=== PATIENT | female | born 2000 | race African-American/Black ===

== ENCOUNTER 2023-02-01 00:24 | Emergency (ER) | payer MEDICAID ==
[2023-02-01] MEDS ORDERED: IBUP-2028 MT (01:07)
[2023-02-01] MEDS ORDERED: ONDA4TAB50 MT (01:07)
[2023-02-01] MEDS ORDERED: PENI500T MT (01:07)
[2023-02-01] MEDS ORDERED: HYDROCODONE/ACETAMINOPHEN 5/325MG TABLET PO ONE (01:45)
== END 2023-02-01 01:39 | disposition home or self-care (01) ==
LOC: ER 00:24
DX: D57.1 Sickle-cell disease without crisis (principal); K13.79 Other lesions of oral mucosa; J02.9 Acute pharyngitis, unspecified
CPT/HCPCS: 81025; 99283

== ENCOUNTER 2023-09-04 09:39 | Emergency (ER) | payer MEDICAID ==
[~2023-09-04] VITALS: Ht 167.6 cm; Wt 59.0 kg
[~2023-09-04 09:39] MED LIST: IBUP-2028 MT; ONDA4TAB50 MT; PENI500T MT
[2023-09-04 09:56] VITALS: O2SAT 99
[2023-09-04] MEDS ORDERED: MORPHINE SULFATE 4 MG/ML CPJ (NOT FOR IM USE) IV STA (11:05)
[2023-09-04] MEDS ORDERED: ONDANSETRON HCL 4MG/2ML INJ IV STA (11:05)
[2023-09-04 12:08] LABS: BASOPHILS % 0.4 % (0.0-2.0); HEMATOCRIT. 24.2 % (36.0-48.0); HEMOGLOBIN. 8.4 g/dL (12.0-16.0); LYMPHOCYTES % 21.9 % (20.0-50.0); MEAN CORPUSCULAR HEMOGLOBIN 27.5 pg (28.0-32.0); MEAN CORPUSCULAR HGB CONC 34.8 g/dL (31.0-37.0); MEAN PLATELET VOLUME 7.8 fl (7.4-10.4); MONOCYTES % 5.4 % (2.0-8.0); NEUTROPHILS % 71.3 % (40.0-76.0); PLATELET 89 x1000/uL (130-400); RED BLOOD CELL COUNT 3.07 mill/uL (4.2-5.4); RED CELL DISTRIBUTION WIDTH 20.7 % (11.6-14.6); WHITE BLOOD COUNT 11.2 x1000/uL (4.5-11.0)
[2023-09-04 12:09] LABS: DIFFERENTIAL COMMENT 1
[2023-09-04 12:16] LABS: INR 1.1; PROTHROMBIN TIME 11.8 sec (9.6-11.0)
[2023-09-04 12:45] LABS: ALANINE AMINOTRANSFERASE < 7 IU/L (10-49); ASPARTATE AMINOTRANSFERASE 27 IU/L (<34); BILIRUBIN TOTAL 11.3 mg/dL (0.1-1.0); CALCIUM 9.2 mg/dL (8.7-10.4); CARBON DIOXIDE 26 mEq/L (21-32); CHLORIDE 104 mEq/L (98-107); CREATININE 0.4 mg/dL (0.6-1.0); GLUCOSE 83 mg/dL (70-105); POTASSIUM 3.2 mEq/L (3.5-5.1); PROTEIN TOTAL 7.3 g/dL (6.0-8.3); SODIUM 140 mEq/L (136-145); UREA NITROGEN BLOOD 7 mg/dL (9-23)
[2023-09-04 12:54] LABS: TROPONIN I HIGH SENSITIVITY < 4 ng/L (3.0-34)
[2023-09-04 13:08] LABS: CLARITY URINE CLEAR (CLEAR); COLOR URINE YELLOW (YELLOW); SPECIFIC GRAVITY URINE 1.015 (1.005-1.030)
[2023-09-04 13:09] LABS: GLUCOSE URINE NEGATIVE (NEGATIVE); KETONES URINE 3+ (NEGATIVE); NITRITE URINE NEGATIVE (NEGATIVE); OCCULT BLOOD URINE TRACE (NEGATIVE); PROTEIN URINE TRACE (NEGATIVE); UROBILINOGEN URINE >8.0 E.U./dL (0.2-1.0)
[2023-09-04 13:10] LABS: LEUKOCYTE ESTERASE URINE 1+ (NEGATIVE)
[2023-09-04 13:13] LABS: SQUAMOUS EPITHELIAL CELL URINE 1+ /lpf (RARE/1+)
[2023-09-04 13:28] LABS: BACTERIA URINE 1+; RBC URINE 0-2 /hpf (0-2); YEAST URINE NONE SEEN
[2023-09-04 13:29] LABS: MUCUS URINE 1+ /lpf (< = 2+)
[2023-09-04 13:50] LABS: SICKLE CELL SCREEN POSITIVE (NEGATIVE)
[2023-09-04] MEDS ORDERED: SUMA25TA9 MT (14:35)
[2023-09-04 15:08] VITALS: BP 110/71; PULSE 79; RESP 16; TEMP 98
== END 2023-09-04 15:41 | disposition home or self-care (01) ==
LOC: ER 09:39
DX: D57.1 Sickle-cell disease without crisis (principal)
CPT/HCPCS: 80053; 81003; 85660; 85025; 85044; 85610; 86850; 86900; 86901; 84484; 36415; 71045; 70450; 93005; 96374; 96375; 99285; J2405; J2270; Z7610 ×3

== ENCOUNTER 2025-06-20 17:00 | Emergency (ER) | payer MEDICAID ==
[~2025-06-20] VITALS: Ht 162.6 cm; Wt 60.0 kg
[~2025-06-20 17:00] MED LIST changes: +SUMA25TA9 MT
[2025-06-20 17:02] VITALS: O2SAT 99
[2025-06-20 17:04] VITALS: BP 111/69; PULSE 69; RESP 18; TEMP 36.9; O2SAT 100
[2025-06-20] MEDS ORDERED: DOXY100T2 MT (18:07)
[2025-06-20] MEDS ORDERED: PENICILLIN G BENZATHINE 2,400,000 UNITS/4ML SYR IM ONE (18:15)
[2025-06-20] MEDS: CEFTRIAXONE SODIUM 500MG VIAL IM ONE (19:05)
[2025-06-21 14:39] LABS: CLARITY URINE CLEAR (CLEAR); COLOR URINE YELLOW (YELLOW); GLUCOSE URINE NEGATIVE (NEGATIVE); KETONES URINE NEGATIVE (NEGATIVE); LEUKOCYTE ESTERASE URINE 2+ (NEGATIVE); NITRITE URINE NEGATIVE (NEGATIVE); OCCULT BLOOD URINE NEGATIVE (NEGATIVE); PH URINE 7.0 (4.5-8.0); PROTEIN URINE NEGATIVE (NEGATIVE); SPECIFIC GRAVITY URINE 1.013 (1.005-1.030); UROBILINOGEN URINE 1.0 E.U./dL (0.2-1.0)
[2025-06-21 15:01] LABS: MUCUS URINE 1+ /lpf (< = 2+); SQUAMOUS EPITHELIAL CELL URINE 2+ /lpf (RARE/1+)
[2025-06-21 15:06] LABS: BACTERIA URINE TRACE; RBC URINE 0-2 /hpf (0-2)
[2025-06-23 06:12] LABS: CHLAMYDIA TRACHOMATIS NAA Positive (Negative); NEISSERIA GONORRHOEAE NAA Negative (Negative)
== END 2025-06-20 19:10 | disposition home or self-care (01) ==
LOC: ER 17:00
DX: Z11.3 Encounter for screening for infections with a predominantly sexual mode of transmission (principal); Z79.899 Other long term (current) drug therapy
CPT/HCPCS: 99283; 86592; 86695; 86696; 87491; 87591; 81003; 81025; 36415; 96372; J0561; J0696